=== PATIENT | male | born 1965 | race African-American/Black ===

== ENCOUNTER 2018-02-04 19:15 | Inpatient (IN) | payer MEDICAID ==
[~2018-02-04] VITALS: Ht 175.3 cm; Wt 93.4 kg
[2018-02-04] MEDS ORDERED: ASPIRIN 81MG TABLET PO ONE (20:45)
[2018-02-04 21:38] LABS: BASOPHILS % 0.5 % (0.0-2.0); EOSINOPHILS % 0.3 % (0.0-5.0); HEMOGLOBIN. 15.2 g/dL (14.0-18.0); LYMPHOCYTES % 17.3 % (20.0-50.0); MEAN CORPUSCULAR HEMOGLOBIN 30.1 pg (28.0-32.0); MEAN CORPUSCULAR VOLUME 91.1 fL (80.0-94.0); MEAN PLATELET VOLUME 10.1 fl (7.4-10.4); MONOCYTES % 5.5 % (2.0-8.0); NEUTROPHILS % 76.4 % (40.0-76.0); PLATELET 175 x1000/uL (130-400); RED BLOOD CELL COUNT 5.05 mill/uL (4.7-6.1); RED CELL DISTRIBUTION WIDTH 14.2 % (11.6-14.6)
[2018-02-04 21:44] LABS: CHLORIDE 107 mEq/L (98-107)
[2018-02-04 21:46] LABS: D-DIMER 0.51 mg/L FEU (<0.50); INR 1.2; PARTIAL THROMBOPLASTIN TIME 27.6 sec (23.4-31.0); PROTHROMBIN TIME 12.5 sec (9.1-11.1)
[2018-02-05] MEDS ORDERED: ACETAMINOPHEN 325MG TABLET PO PRN (02:45)
[2018-02-05] MEDS ORDERED: DEXTROSE 50% WATER 50ML SYRINGE IV PRN (02:45)
[2018-02-05] MEDS ORDERED: MAGNESIUM/ALUMINUM HYDROXIDE/SIMETHICONE 30ML UDC PO PRN (02:45)
[2018-02-05] MEDS ORDERED: MORPHINE SULFATE 4 MG/ML CPJ (NOT FOR IM USE) IV PRN (02:45)
[2018-02-05] MEDS ORDERED: MAGNESIUM HYDROXIDE 400MG/5ML 30ML UDC PO PRN (02:45)
[2018-02-05] MEDS ORDERED: IPRATROPIUM/ALBUTEROL 0.5-3(2.5)MG/3ML NEB INH PRN (02:45)
[2018-02-05] MEDS ORDERED: ONDANSETRON HCL 4MG/2ML INJ IV PRN (02:45)
[2018-02-05] MEDS ORDERED: KETOROLAC 30MG/ML VIAL IV PRN (03:00)
[2018-02-05] MEDS ORDERED: LEVO25TA7 MT (04:26)
[2018-02-05] MEDS ORDERED: CYCL10TA7 MT (04:29)
[2018-02-05] MEDS ORDERED: LISI-604 MT (04:30)
[2018-02-05] MEDS ORDERED: IBUP-2029 MT (04:31)
[2018-02-05] MEDS ORDERED: ENTE0.5T4 MT (04:36)
[2018-02-05] MEDS: SODIUM CHLORIDE 0.9% INJ 3ML FLUSH IVF SCH ×3 (06:00→21:48)
[2018-02-05 09:58] VITALS: BP 118/69
[2018-02-05] MEDS: FAMOTIDINE 20MG TABLET PO SCH ×2 (10:56→22:47)
[2018-02-05] MEDS: ASPIRIN 81MG EC TABLET PO SCH (10:56)
[2018-02-05 11:49] VITALS: BP 118/69
[2018-02-05 12:00] VITALS: BP 121/82
[2018-02-05] MEDS: INSULIN LISPRO 100 UNITS/ML SUBCUT SCH ×3 (12:00→18:10)
[2018-02-05] MEDS: BLOOD SUGAR DIAGNOSTIC STRIP TEST SCH ×3 (12:00→17:40)
[2018-02-05 16:00] VITALS: BP 112/81
[2018-02-05 20:00] VITALS: BP 104/77
[2018-02-06] VITALS: BP 111/70
[2018-02-06 04:00] VITALS: BP 127/58
[2018-02-06] MEDS: SODIUM CHLORIDE 0.9% INJ 3ML FLUSH IVF SCH (06:03)
[2018-02-06 08:10] VITALS: BP 106/67
[2018-02-06 08:16] VITALS: BP 106/67
[2018-02-06] MEDS: FAMOTIDINE 20MG TABLET PO SCH (08:39)
[2018-02-06] MEDS: ASPIRIN 81MG EC TABLET PO SCH (08:39)
== END 2018-02-06 11:18 | disposition home or self-care (01) | DRG 347 ==
LOC: ER 22:01 → 7WST 22:48 → ENRESERV 02-05 07:59
PROVIDERS: ADMIT Internal Medicine; ATTEND Internal Medicine
DX: M54.2 Cervicalgia (principal); E03.9 Hypothyroidism, unspecified; F17.210 Nicotine dependence, cigarettes, uncomplicated; I10 Essential (primary) hypertension; R20.2 Paresthesia of skin; Z87.81 Personal history of (healed) traumatic fracture; Z88.0 Allergy status to penicillin; M94.0 Chondrocostal junction syndrome [Tietze]
CPT/HCPCS: 36415; 71045; 78582; 82962; 83036; 83880; 84484; 85379; 93005; 93970; 99285; A9558

== ENCOUNTER 2019-09-18 07:40 | Emergency (ER) | payer OTHER, MEDICAID ==
[~2019-09-18] VITALS: Ht 180.3 cm; Wt 82.0 kg
[~2019-09-18 07:40] MED LIST: CYCL10TA7 MT; ENTE0.5T4 MT; IBUP-2029 MT; LEVO25TA7 MT; LISI-604 MT
[2019-09-18] MEDS ORDERED: TETANUS, DIPHTHERIA, PERTUSSIS VAC/PF 0.5ML (>7YR OLD) IM ONE (08:15)
[2019-09-18] MEDS ORDERED: LIDOCAINE HCL/EPINEPHRINE 1%-EPI 1:100,000 20 ML VIAL INFIL SCH (08:45)
[2019-09-18] MEDS ORDERED: LIDOCAINE 1%/EPI 1:100,000 10 ML VIAL IJ ONE (08:45)
[2019-09-18] MEDS ORDERED: BACITRACIN ZINC OINT UDPKT TOP ONE (08:45)
[2019-09-18 09:20] VITALS: BP 138/83
== END 2019-09-18 09:22 | disposition home or self-care (01) ==
LOC: ER 08:04
DX: S51.812A Laceration without foreign body of left forearm, initial encounter (principal); S00.91XA Abrasion of unspecified part of head, initial encounter; I10 Essential (primary) hypertension; F43.10 Post-traumatic stress disorder, unspecified; B38.0 Acute pulmonary coccidioidomycosis; Z88.0 Allergy status to penicillin; Z79.899 Other long term (current) drug therapy; W45.8XXA Other foreign body or object entering through skin, initial encounter; Y93.89 Activity, other specified; Y92.89 Other specified places as the place of occurrence of the external cause; Y99.8 Other external cause status
CPT/HCPCS: 12002; 90471; 90715; 99283; J3490